=== PATIENT | male | born 1960 | race American Indian/Alaskan Native ===

== ENCOUNTER 2018-07-02 12:33 | Inpatient (IN) | payer OTHER ==
[2018-07-02] MEDS ORDERED: ATIVAN IV ONE (12:44)
--- NOTE | 2018-07-02 12:44 | Emergency Department Report ---
- General Stated complaint: STROKE Time Seen by Provider: 07/02/18 12:33 Source: EMS Mode of arrival: Stretcher Limitations: Altered Mental Status - History of Present Illness Initial comments: Patient is a 58-year-old male presents to emergency with complaints of right- sided weakness as seizure activity. Patient has a known history of seizures. Patient not answering questions. Patient postictal at this time. Report via EMS. Per EMS the family stated that the patient's last known well time was 10:3 0 PM the night before. And is having right sided weakness and inability to move his right arm and leg since 10:30 last night MD Complaint: focal weakness -: Sudden Location: RUE, RLE Severity: severe Consistency: constant Improves with: none Worsens with: none - Related Data Allergies Allergy/AdvReac Type Severity Reaction Status Date / Time No Known Allergies Allergy Verified 07/02/18 13:04 ED Review of Systems ROS: Stated complaint: STROKE Other details as noted in HPI Comment: Unobtainable due to pts medical conditions ED Past Medical Hx - Past Medical History Previous Medical History?: Yes Hx Seizures: Yes - Surgical History Past Surgical History?: No - Family History Family history: no significant - Social History Smoking Status: Unknown if ever smoked Substance Use Type: None ED Physical Exam - General Limitations: Altered Mental Status General appearance: in no apparent distress, lethargic - Head Head exam: Present: atraumatic, normocephalic - Eye Eye exam: Present: normal appearance - ENT ENT exam: Present: mucous membranes moist - Neck Neck exam: Present: normal inspection - Respiratory Respiratory exam: Present: normal lung sounds bilaterally. Absent: respiratory distress - Cardiovascular Cardiovascular Exam: Present: regular rate, normal rhythm. Absent: systolic murmur, diastolic murmur, rubs, gallop - GI/Abdominal GI/Abdominal exam: Present: soft, normal bowel sounds - Rectal Rectal exam: Present: deferred - Extremities Exam Extremities exam: Present: normal inspection - Back Exam Back exam: Present: normal inspection - Neurological Exam Neurological exam: Present: altered - Skin Skin exam: Present: warm, dry, intact, normal color. Absent: rash - Assessment Assessment Interval: Baseline - Level of Consciousness 1a. Level of Consciousness: arousable/minor stimuli - LOC Questions 1b. LOC Questions: aphasic - LOC Command 1c. LOC Commands: performs 1 task correctly - Best Gaze 2. Best Gaze: normal - Visual 3. Visual: no visual loss - Facial Palsy 4. Facial Palsy: minor paralysis - Motor Arm 5b. Motor Arm Right: no movement 5a. Motor Arm Left: no drift - Motor Leg 6b. Motor Leg Right: no movement 6a. Motor Leg Left: no drift - Limb Ataxia 7. Limb Ataxia: absent - Sensory 8. Sensory: normal - Best Language 9. Best Language: severe aphasia - Dysarthria 10. Dysarthria: mute/anarrthric - Extinction and Inattention 11. Extinction/Inattention: no abnormality - Scoring Total Score: 17 Stroke Severity: Moderate to Severe Stroke ED Course Vital Signs 07/02/18 07/02/18 07/02/18 12:56 13:00 13:04 Temperature 100.4 F H Pulse Rate 83 81 84 Respiratory 22 20 18 Rate Blood Pressure 174/95 174/95 O2 Sat by Pulse 98 98 Oximetry 07/02/18 07/02/18 07/02/18 13:16 13:30 13:46 Temperature Pulse Rate 79 77 87 Respiratory 19 17 17 Rate Blood Pressure 168/96 154/96 162/101 O2 Sat by Pulse 100 98 99 Oximetry 07/02/18 07/02/18 14:00 14:16 Temperature Pulse Rate 82 87 Respiratory 20 18 Rate Blood Pressure 154/94 162/100 O2 Sat by Pulse 99 98 Oximetry - Reevaluation(s) Reevaluation #1: Patient immediately evaluated upon arrival by EMS. Code stroke initiated. Patient sent to CT. patient moving during CT and will be given Ativan. 07/02/18 12:30 No change in neuro status. 07/02/18 13:00 Patient is more arousable at this time. Patient is still dysarthric and aphasic. Patient able to move his right side a little bit better but still has notable weakness when Compared to the left side. 07/02/18 14:54 - Consultations Consultation #1: Neurologist consulted. Dr. Santana recommended CT and then immediately CTA 07/02/18 12:42 Discussed CTA results with neurologist. Neurologist recommends admission and MRI. 07/02/18 14:53 Consultation #2: Hospitalist consulted for admission. Hospitalist to admit patient. 07/02/18 14:55 ED Medical Decision Making - Lab Data Result diagrams: 07/02/18 12:55 07/02/18 12:55 - EKG Data -: EKG Interpreted by Ne EKG shows normal: sinus rhythm, axis, intervals, QRS complexes, ST-T waves Rate: normal - EKG Data Interpretation: [facility] - Radiology Data Radiology results: report reviewed FINAL REPORT EXAM: CT HEAD/BRAIN WO CON HISTORY: neuro deficits lt; 6hrs or sx present upon awakening TECHNIQUE: CT of the head was performed. No intravenous contrast was administered. PRIORS: None. FINDINGS: There is moderate cerebral atrophy. There is no evidence of intracranial hemorrhage. There is no edema, mass effect or midline shift. There are no abnormal extra-axial fluid collections. The ventricles are appropriate for brain volume. There is no skull fracture seen. The visualized aspects of the sinuses are clear. IMPRESSION: There is no acute intracranial abnormality identified. Transcribed By: CARLOS Dictated By: HONG PAYTON MD Electronically Authenticated By: HONG PAYTON MD Signed Date/Time: 07/02/18 1303 CTA HEAD CTA NECK INDICATION: Weakness, CVA. COMPARISON: Head CT from earlier today. FINDINGS: CTA head and neck performed utilizing IV contrast. Axial, sagittal, coronal and MIP reconstructions obtained. CTA HEAD: Patent [place] of [place] without evidence of occlusion, significant stenosis or vascular malformation. Patent vertebrobasilar system as well. CTA NECK: Patent aortic arch and major arising branch vessels, including bilateral carotids and codominant vertebral arteries. Mild atherosclerotic changes at the right carotid bulb as on axial series 3, images 231-242 with overall approximately 50% stenosis suspected. Unremarkable thyroid. Clear imaged upper lungs. Patent airway. Multilevel cervical spine degenerative changes, most prominent from C3-C6 with degenerative spurring, endplate irregularities as also mild loss of C5 and C6 vertebral body height. C6-C7 disc narrowing also seen. Leftward nasal septal bowing noted as on axial image 362 as also a 5 mm leftward nasal septal spur, axial image 345. Bilateral maxillary sinus mucosal thickening inferiorly also noted, right more than left. 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 Maxillary dental disease also seen in this patient with small radiopaque dental filling and numerous missing teeth. CONCLUSION: Normal CTA head and neck with few other findings as bilateral maxillary sinusitis, mild right carotid bulb atherosclerosis and multilevel cervical spondylosis, amongst others, as described. Please correlate. If focal neurologic deficits or strong clinical suspicion for an acute infarction exist, additional assessment as with MRI may be considered, as appropriate. Thank you for the opportunity to participate in this patient's care. Transcribed By: RS Dictated By: KELLY REZA MD Electronically Authenticated By: KELLY REZA MD Signed Date/Time: 07/02/18 1439 - Medical Decision Making Patient is a 58-year-old male presents emergency room with complaints of right- sided weakness. Last normal well time was 10:30 AM the day prior. Neurology consulted. CT of the head and neck done, results noted. CT of the head was done. Labs done and noted. Labs essentially unremarkable. Recently admitted to the hospitalist service for further evaluation and treatment. Patient will require MRI and a stroke workup. - Differential Diagnosis cva. tia. weakness. sz. Critical Care Time: Yes Critical care attestation.: If time is entered above; I have spent that time in minutes in the direct care of this critically ill patient, excluding procedure time. Critical Care Time: 45 minutes ED Disposition Clinical Impression: Right sided weakness, Seizure Altered mental state Qualifiers: Altered mental status type: unspecified Qualified Code(s): R41.82 - Altered mental status, unspecified CVA (cerebral vascular accident) Qualifiers: CVA mechanism: unspecified Qualified Code(s): I63.9 - Cerebral infarction, unspecified Disposition: DC-09 OP ADMIT IP TO THIS HOSP Is pt being admited?: Yes Does the pt Need Aspirin: No Condition: Critical Time of Disposition: 14:53
[2018-07-02] MEDS ORDERED: ATIVAN ONE (12:47)
--- NOTE | 2018-07-02 13:03 | Cat Scan Report ---
FINAL REPORT EXAM: CT HEAD/BRAIN WO CON HISTORY: neuro deficits < 6hrs or sx present upon awakening TECHNIQUE: CT of the head was performed. No intravenous contrast was administered. PRIORS: None. FINDINGS: There is moderate cerebral atrophy. There is no evidence of intracranial hemorrhage. There is no edema, mass effect or midline shift. There are no abnormal extra-axial fluid collections. The ventricles are appropriate for brain volume. There is no skull fracture seen. The visualized aspects of the sinuses are clear. IMPRESSION: There is no acute intracranial abnormality identified.
[2018-07-02 13:05] LABS: Basophils % (Auto) 0.5 % (0.0-1.8); Hematocrit 38.6 % (35.5-45.6); Hemoglobin 12.6 gm/dl (11.8-15.2); Lymphocytes % (Auto) 12.3 % (13.4-35.0); Mean Corpuscular HGB Conc 33 % (32-34); Mean Corpuscular Hemoglobin 29 pg (28-32); Mean Corpuscular Volume 88 fl (84-94); Monocytes # (Auto) 0.6 K/mm3 (0.0-0.8); Platelet Count 468 K/mm3 (140-440); Red Blood Count 4.38 M/mm3 (3.65-5.03); Red Cell Distribution Width 15.1 % (13.2-15.2)
[2018-07-02 13:17] LABS: BUN/Creatinine Ratio 16; Blood Urea Nitrogen 11 mg/dL (9-20); Calcium 9.2 mg/dL (8.4-10.2); Hemolysis Index 12
[2018-07-02 13:19] LABS: INR 0.98 (0.87-1.13); Partial Thromboplastin Time 28.2 Sec. (24.2-36.6)
--- NOTE | 2018-07-02 14:36 | Cat Scan Report ---
CTA HEAD CTA NECK INDICATION: Weakness, CVA. COMPARISON: Head CT from earlier today. FINDINGS: CTA head and neck performed utilizing IV contrast. Axial, sagittal, coronal and MIP reconstructions obtained. CTA HEAD: Patent [place] of [place] without evidence of occlusion, significant stenosis or vascular malformation. Patent vertebrobasilar system as well. CTA NECK: Patent aortic arch and major arising branch vessels, including bilateral carotids and codominant vertebral arteries. Mild atherosclerotic changes at the right carotid bulb as on axial series 3, images 231-242 with overall approximately 50% stenosis suspected. Unremarkable thyroid. Clear imaged upper lungs. Patent airway. Multilevel cervical spine degenerative changes, most prominent from C3-C6 with degenerative spurring, endplate irregularities as also mild loss of C5 and C6 vertebral body height. C6-C7 disc narrowing also seen. Leftward nasal septal bowing noted as on axial image 362 as also a 5 mm leftward nasal septal spur, axial image 345. Bilateral maxillary sinus mucosal thickening inferiorly also noted, right more than left. 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 Maxillary dental disease also seen in this patient with small radiopaque dental filling and numerous missing teeth. CONCLUSION: Normal CTA head and neck with few other findings as bilateral maxillary sinusitis, mild right carotid bulb atherosclerosis and multilevel cervical spondylosis, amongst others, as described. Please correlate. If focal neurologic deficits or strong clinical suspicion for an acute infarction exist, additional assessment as with MRI may be considered, as appropriate. Thank you for the opportunity to participate in this patient's care.
[2018-07-02] MEDS ORDERED: DULCOLAX PR PRN (15:07)
[2018-07-02] MEDS ORDERED: SODIUM CHLORIDE FLUSH SYRINGE 10 ML IV PRN (15:07)
[2018-07-02] MEDS ORDERED: MILK OF MAGNESIA PO PRN (15:07)
[2018-07-02] MEDS ORDERED: REGLAN PO PRN (15:07)
[2018-07-02] MEDS ORDERED: PHENERGAN PR PRN (15:07)
[2018-07-02] MEDS ORDERED: TYLENOL PO PRN (15:07)
[2018-07-02] MEDS ORDERED: ZOFRAN IV PRN (15:07)
--- NOTE | 2018-07-02 15:07 | History and Physical Report ---
History of Present Illness Date of admission: confused Chief complaint: confused History of present illness: 58 YO Male with Seizure Disorder, presents to ED for evaluation. Pt is confused, and unable to provide history. Pt history taken from ED staff, and EMS. Patient reports to EMS that the patient became confused around bedtime at 2230 hrs. The patient was also noted to have right sided weakness, slurred speech, and difficulty speaking. Pt subsequently went to bed, and awoke today with persistent symptoms. EMS was notified, and upon arrival the patient was found to have symptoms consistent with CVA. Code Stroke was called and the patient transported to [facility] for further care and evaluation. Pt seen and evaluated in ED. Pt initiated on CVA protocol. Neurology consulted in ED. Pt admitted to telemetry, and initiated on CVA protocol. Pt outside therapeutic window for tpa. No additional history obtainable. Past History Past Medical History: seizures Past Surgical History: No surgical history, Other (reviewed) Social history: , lives with family. denies: smoking, alcohol abuse, prescription drug abuse Family history: no significant family history (reviewed) Medications and Allergies Allergies Allergy/AdvReac Type Severity Reaction Status Date / Time No Known Allergies Allergy Verified 07/02/18 13:04 Home Medications Medication Instructions Recorded Confirmed Last Taken Type Magnesium Oxide [Magnesium] 400 mg PO DAILY 07/02/18 07/02/18 Unknown History Multivitamin [One-Daily 1 each PO DAILY 07/02/18 07/02/18 Unknown History Multi-Vitamin] levETIRAcetam [Keppra TAB] 750 mg PO DAILY 07/02/18 07/02/18 Unknown History Review of Systems ROS unobtainable: due to mental status Exam - Constitutional Vitals: Temp Pulse Resp BP Pulse Ox 100.4 F H 87 18 162/100 98 07/02/18 13:04 07/02/18 14:16 07/02/18 14:16 07/02/18 14:16 07/02/18 14:16 General appearance: Present: mild distress - EENT Eyes: Present: miosis ENT: hearing intact, clear oral mucosa - Neck Neck: Present: supple, normal ROM - Respiratory Respiratory effort: normal Respiratory: bilateral: CTA - Cardiovascular Heart Sounds: Present: S1 & S2. Absent: rub, click - Extremities Extremities: pulses symmetrical, No edema Peripheral Pulses: within normal limits - Abdominal General gastrointestinal: Present: soft, non-tender, non-distended, normal bowel sounds Male genitourinary: Present: normal - Integumentary Integumentary: Present: clear, dry - Musculoskeletal Musculoskeletal: right sided weakness - Psychiatric Psychiatric: no appropriate mood/affect, no intact judgment & insight, no memory intact - Neurologic Neurologic: focal deficits, no moves all extremities, no gait normal Results - Labs CBC & Chem 7: 07/02/18 12:55 07/02/18 12:55 Labs: Abnormal lab results 07/02/18 07/02/18 Range/Units 12:55 12:55 Plt Count 468 H (140-440) K/mm3 Lymph % (Auto) 12.3 L (13.4-35.0) % Lymph # 1.0 L (1.2-5.4) K/mm3 Seg Neutrophils % 80.2 H (40.0-70.0) % Creatinine 0.7 L (0.8-1.5) mg/dL Glucose 124 H (75-100) mg/dL Assessment and Plan - Patient Problems (1) CVA (cerebral vascular accident) Current Visit: Yes Status: Acute Qualifiers: CVA mechanism: occlusion Precerebral and cerebral artery: middle cerebral artery Laterality of affected vessel: left Qualified Code(s): I63.512 - Cerebral infarction due to unspecified occlusion or stenosis of left middle cerebral artery Plan to address problem: Admit to telemetry, CT Head, MRI brain, MRA brain, antiplatelet therapy, statin therapy, lipid panel, PT/OT/Speech therapy, Case management consulted (2) Right hemiparesis Current Visit: Yes Status: Acute Plan to address problem: PT/OT consulted (3) Encephalopathy Current Visit: Yes Status: Acute Plan to address problem: CT Head, neuro checks, supportive care, treat CVA (4) Seizure disorder Current Visit: Yes Status: Acute Plan to address problem: EEG, Neurology consulted in ED, supportive care. (5) DVT prophylaxis Current Visit: Yes Status: Acute Plan to address problem: SCD to ble while in bed
--- NOTE | 2018-07-02 18:21 | Magnetic Resonance Report ---
FINAL REPORT EXAM: MR BRAIN WO CON HISTORY: strokeer inpatient TECHNIQUE: MRI brain without contrast PRIORS: None. FINDINGS: There is normal signal throughout the brain parenchyma. No evidence for brain edema pattern or mass e ffect. Ventricles and sulci are within normal limits. No evidence for acute intra-axial or extra-axia l hemorrhage. No evidence for acute restriction on diffusion-weighted study. Brainstem and posterior fossa structur es are unremarkable. IMPRESSION: Negative. No focal abnormality identified
--- NOTE | 2018-07-02 18:23 | Magnetic Resonance Report ---
FINAL REPORT EXAM: MR MRA/MRV HEAD WO CON HISTORY: strokeer inpatient MR angiogram head [id number] PRIORS: None. FINDINGS: Normal appearance of the intracranial portion of the carotid arteries. The MCA and [place] distributions are unremarkable Distal vertebral arteries are intact. The basilar and REDUCING SYSTEM OPERATOR circulation is within normal limits No evidence for major vascular occlusion or aneurysm IMPRESSION: Normal MRA head
[2018-07-02 21:30] LABS: Bilirubin,Urine NEG (Negative); Blood,Urine NEG (Negative); Color,Urine Yellow (Yellow); Mucus,Urine FEW /HPF; Urobilinogen,Urine < 2.0 mg/dL (<2.0); WBC,Urine < 1.0 /HPF (0.0-6.0)
[2018-07-02 21:40] LABS: Amphetamine Screen,Urine PRESUMPTIVE NEGATIVE; Benzodiazepines Screen,Urine PRESUMPTIVE NEGATIVE; Cannabinoid Screen,Urine PRESUMPTIVE NEGATIVE; Cocaine Screen,Urine PRESUMPTIVE NEGATIVE; Methadone Screen,Urine PRESUMPTIVE NEGATIVE; Opiate Screen,Urine PRESUMPTIVE NEGATIVE
[2018-07-03 05:56] LABS: Chol/HDL Ratio 2.94 %
--- NOTE | 2018-07-03 09:20 | Progress Note ---
Assessment and Plan Assessment and plan: Pt is a 58 yo man with a history of seizure disorder who present to [facility] ED with AMS, confusion and right sided weakness * CT head wo contrast IMPRESSION: There is no acute intracranial abnormality identified. * CTA head and neck CONCLUSION: Normal CTA head and neck with few other findings as bilateral maxillary sinusitis, mild right carotid bulb atherosclerosis and multilevel cervical spondylosis, amongst others, as described. Please correlate. * MRI brain: IMPRESSION: Negative. No focal abnormality identified * MRA brain: IMPRESSION: Normal MRA head -Acute CVA ruled out most likely: ECHO pending -AMS with acute metabolic encephalopathy most likely seizure related defer to Neurology -Seizure Disorder, suspect status epilepticus: treat with Keppra, EEG ordered, -new issue, FEVERS: get blood culture, treat with tylenol, check rapid flu, cxr, UA was unremarkable for uti -DVT prophylaxis: add sq heparin History Interval history: Patient was seen and examined. Follow-up on current diagnosis of AMS. Overnight uneventful. Patient denies any chest pain, shortness breath, nausea/vomiting or severe headaches. Imaging, nursing note, chart, labs and old chart reviewed. Discussed with patient. Hospitalist Physical - Physical exam Narrative exam: Gen: WDWN, NAD, Awake, Alert, Orientated HEENT: NCAT, EOMI, PERRL, OP Clear Neck: supple, no adenopathy, no thyromegaly, no JVD CVS/Heart: RRR, normal S1S2, pulses present bilaterally Chest/Lungs: CTA B, Symmetrical chest expansion, good air entry bilaterally GI/Abdomen: soft, NTND, good bowel sounds, no guarding or rebound /Bladder: no suprapubic tenderness, no CVA or paraspinal tenderness Extermity/Skin: no c/c/e, no obvious rash MSK: FROM x 4 Neuro: CN 2-12 grossly intact, no new focal deficits Psych: calm - Constitutional Vitals: Temp Pulse Resp BP Pulse Ox 98.3 F 65 16 126/82 97 07/03/18 07:53 07/03/18 07:53 07/03/18 07:53 07/03/18 07:53 07/03/18 07:53 General appearance: Absent: mild distress Results - Labs CBC & Chem 7: 07/02/18 12:55 07/02/18 12:55 Labs: Laboratory Last Values WBC 8.1 K/mm3 (4.5-11.0) 07/02/18 12:55 RBC 4.38 M/mm3 (3.65-5.03) 07/02/18 12:55 Hgb 12.6 gm/dl (11.8-15.2) 07/02/18 12:55 Hct 38.6 % (35.5-45.6) 07/02/18 12:55 MCV 88 fl (84-94) 07/02/18 12:55 MCH 29 pg (28-32) 07/02/18 12:55 MCHC 33 % (32-34) 07/02/18 12:55 RDW 15.1 % (13.2-15.2) 07/02/18 12:55 Plt Count 468 K/mm3 (140-440) H 07/02/18 12:55 Lymph % (Auto) 12.3 % (13.4-35.0) L 07/02/18 12:55 [place] % (Auto) 7.0 % (0.0-7.3) 07/02/18 12:55 Eos % (Auto) 0.0 % (0.0-4.3) 07/02/18 12:55 Baso % (Auto) 0.5 % (0.0-1.8) 07/02/18 12:55 Lymph # 1.0 K/mm3 (1.2-5.4) L 07/02/18 12:55 [place] # 0.6 K/mm3 (0.0-0.8) 07/02/18 12:55 Eos # 0.0 K/mm3 (0.0-0.4) 07/02/18 12:55 Baso # 0.0 K/mm3 (0.0-0.1) 07/02/18 12:55 Seg Neutrophils % 80.2 % (40.0-70.0) H 07/02/18 12:55 Seg Neutrophils # 6.5 K/mm3 (1.8-7.7) 07/02/18 12:55 PT 13.4 Sec. (12.2-14.9) 07/02/18 12:59 INR 0.98 (0.87-1.13) 07/02/18 12:59 APTT 28.2 Sec. (24.2-36.6) 07/02/18 12:59 Thrombin Time 17.9 Sec. (15.1-19.6) 07/02/18 12:59 Sodium 138 mmol/L (137-145) 07/02/18 12:55 Potassium 4.4 mmol/L (3.6-5.0) 07/02/18 12:55 Chloride 98.2 mmol/L (98-107) 07/02/18 12:55 Carbon Dioxide 25 mmol/L (22-30) 07/02/18 12:55 Anion Gap 19 mmol/L 07/02/18 12:55 BUN 11 mg/dL (9-20) 07/02/18 12:55 Creatinine 0.7 mg/dL (0.8-1.5) L 07/02/18 12:55 Estimated GFR > 60 ml/min 07/02/18 12:55 BUN/Creatinine Ratio 16 % 07/02/18 12:55 Glucose 124 mg/dL (75-100) H 07/02/18 12:55 Calcium 9.2 mg/dL (8.4-10.2) 07/02/18 12:55 Troponin T < 0.010 ng/mL (0.00-0.029) 07/02/18 12:55 Triglycerides 95 mg/dL (2-149) 07/03/18 04:44 Cholesterol 247 mg/dL (50-199) H 07/03/18 04:44 LDL Cholesterol Direct 160 mg/dL (50-130) H 07/03/18 04:44 HDL Cholesterol 84 mg/dL (40-59) H 07/03/18 04:44 Cholesterol/HDL Ratio 2.94 % 07/03/18 04:44 Urine Color Yellow (Yellow) 07/02/18 21:07 Urine Turbidity Clear (Clear) 07/02/18 21:07 Urine pH 7.0 (5.0-7.0) 07/02/18 21:07 Ur Specific [place] 1.039 (1.003-1.030) H 07/02/18 21:07 Urine Protein 30 mg/dl mg/dL (Negative) 07/02/18 21:07 Urine Glucose (UA) Neg mg/dL (Negative) 07/02/18 21:07 Urine Ketones Neg mg/dL (Negative) 07/02/18 21:07 Urine Blood Neg (Negative) 07/02/18 21:07 Urine Nitrite Neg (Negative) 07/02/18 21:07 Urine Bilirubin Neg (Negative) 07/02/18 21:07 Urine Urobilinogen < 2.0 mg/dL (<2.0) 07/02/18 21:07 Ur Leukocyte Esterase Neg (Negative) 07/02/18 21:07 Urine WBC (Auto) < 1.0 /HPF (0.0-6.0) 07/02/18 21:07 Urine RBC (Auto) 1.0 /HPF (0.0-6.0) 07/02/18 21:07 Urine Mucus Few /HPF 07/02/18 21:07 Urine Opiates Screen Presumptive negative 07/02/18 21:07 Urine Methadone Screen Presumptive negative 07/02/18 21:07 Ur Barbiturates Screen Presumptive negative 07/02/18 21:07 Ur Phencyclidine Scrn Presumptive negative 07/02/18 21:07 Ur Amphetamines Screen Presumptive negative 07/02/18 21:07 U Benzodiazepines Scrn Presumptive negative 07/02/18 21:07 Urine Cocaine Screen Presumptive negative 07/02/18 21:07 U Marijuana (THC) Screen Presumptive negative 07/02/18 21:07 Drugs of Abuse Note Disclamer 07/02/18 21:07
[2018-07-03] MEDS ORDERED: NON-FORMULARY (Levetiracetam [Keppra Tab] 750 MG) PO SCH (10:00)
--- NOTE | 2018-07-03 10:24 | XRay Report ---
AP CHEST: HISTORY: Fever AP view of the chest demonstrates a normal mediastinal and cardiac contour with clear lungs and normal bony and soft tissue structures. IMPRESSION: Unremarkable AP chest.
[2018-07-03] MEDS ORDERED: KEPPRA PO SCH (12:00)
[2018-07-03] MEDS: KEPPRA PO SCH ×2 (13:56→22:56)
[2018-07-03] MEDS: ASPIRIN PO SCH (13:56)
[2018-07-04] MEDS: KEPPRA PO SCH ×2 (09:43→23:59)
[2018-07-04] MEDS: ASPIRIN PO SCH (09:43)
[2018-07-04] MEDS: HEPARIN SUB-Q SCH ×2 (09:44→23:59)
--- NOTE | 2018-07-04 13:55 | Discharge Summary ---
Providers - Providers Date of Admission: 07/02/18 15:07 Date of discharge: 07/04/18 Attending physician: WILLIAM RAHMAN 07/02/18 15:07 Consult to Case Management [CONS] Routine Services Needed at Discharge: Other Notified:: [employer] PRESIDENT Additional Physician Instructions: Home health/Home PT at discharge Occupational Therapy Evaluate and Treat [CONS] Routine Comment: Reason For Exam: Neuro deficits Physical Therapy Evaluation and Treat [CONS] Routine Comment: Reason For Exam: Neuro deficits 07/02/18 15:09 Speech Therapy Evaluation and Treat [CONS] Routine Reason For Exam: swallow eval Primary care physician: BILLING REP Hospitalization Condition: Stable Hospital course: Pt is a 58 yo man with a history of seizure disorder who present to [facility] ED with AMS, confusion and right sided weakness * CT head wo contrast IMPRESSION: There is no acute intracranial abnormality identified. * CTA head and neck CONCLUSION: Normal CTA head and neck with few other findings as bilateral maxillary sinusitis, mild right carotid bulb atherosclerosis and multilevel cervical spondylosis, amongst others, as described. Please corre late. * MRI brain: IMPRESSION: Negative. No focal abnormality identified * MRA brain: Normal * 2D ECHO: Estimated EF 50-55%, trace MR,AR,TR -Acute CVA ruled out most likely, most likely TIA -AMS with acute metabolic encephalopathy most likely seizure related defer to Neurology -Seizure Disorder: treat with Keppra, EEG ordered but not done, outpatient referral -new issue, FEVERS, most likely sinusitis, did qualify for sepsis with 100.4F and rr 22, poa: blood culture neg x 24 hours, treat with tylenol, check rapid flu (labs cancelled testing), cxr negative for pna, UA was unremarkable for uti -DVT prophylaxis: add sq heparin Disposition: DC-01 TO HOME OR SELFCARE Time spent for discharge: 35 minutes Core Measure Documentation - Palliative Care Palliative Care/ Comfort Measures: Not Applicable - Core Measures Any of the following diagnoses?: none - VTE Discharge Requirements Deep Vein Thrombosis/Pulmonary Embolism Present on Admission: No Has pt received <5 days of overlap therapy or INR<2.0: No Anticoagulant overlap therapy prescribed at discharge: No Contraindication No Overlap Therapy order at DC: Not Indicated Exam - Physical Exam Narrative exam: Gen: WDWN, NAD, Awake, Alert, Orientated HEENT: NCAT, EOMI, PERRL, OP Clear Neck: supple, no adenopathy, no thyromegaly, no JVD CVS/Heart: RRR, normal S1S2, pulses present bilaterally Chest/Lungs: CTA B, Symmetrical chest expansion, good air entry bilaterally GI/Abdomen: soft, NTND, good bowel sounds, no guarding or rebound /Bladder: no suprapubic tenderness, no CVA or paraspinal tenderness Extermity/Skin: no c/c/e, no obvious rash MSK: FROM x 4 Neuro: CN 2-12 grossly intact, no new focal deficits Psych: calm - Constitutional Vitals: Temp Pulse Resp BP Pulse Ox 98.3 F 67 20 112/75 98 07/04/18 11:48 07/04/18 11:48 07/04/18 11:48 07/04/18 11:48 07/04/18 11:48 Plan Activity: up only with assistance, fall precautions, other (no strenous activity unless cleared by pcp) Diet: low salt Follow up with: PRIMARY CAREMD [Primary Care Provider] - 7 Days TSERING LÓPEZ MD [Staff Physician] - 7 Days PRICILA VILLAGOMEZ [Staff Physician] - 7 Days Prescriptions: levETIRAcetam [Keppra TAB] 750 mg PO DAILY #30 tablet levoFLOXacin [Levaquin TAB] 500 mg PO QDAY #7 tablet
--- NOTE | 2018-07-04 16:17 | Progress Note ---
Assessment and Plan Assessment and plan: Pt is a 58 yo man with a history of seizure disorder who present to [facility] ED with AMS, confusion and right sided weakness * CT head wo contrast IMPRESSION: There is no acute intracranial abnormality identified. * CTA head and neck CONCLUSION: Normal CTA head and neck with few other findings as bilateral maxillary sinusitis, mild right carotid bulb atherosclerosis and multilevel cervical spondylosis, amongst others, as described. Please correlate. * MRI brain: IMPRESSION: Negative. No focal abnormality identified * MRA brain: IMPRESSION: Normal MRA head -Acute CVA ruled out most likely, possible TIA: ECHO reviewed, -AMS with acute metabolic encephalopathy most likely seizure related defer to Neurology -Seizure Disorder, suspect status epilepticus: treat with Keppra, EEG ordered, -new issue, FEVERS: get blood culture, treat with tylenol, check rapid flu, cxr, UA was unremarkable for uti -DVT prophylaxis: add sq heparin I discharged patient but case management Nati called me and said that patient was unsteady with PT and then PT wanted to work with patient thru the weekend to optimize his performance status History Interval history: Patient was seen and examined. Follow-up on current diagnosis of AMS. Overnight uneventful. Patient denies any chest pain, shortness breath, nausea/vomiting or severe headaches. Imaging, nursing note, chart, labs and old chart reviewed. Discussed with patient. Hospitalist Physical - Physical exam Narrative exam: Gen: WDWN, NAD, Awake, Alert, Orientated HEENT: NCAT, EOMI, PERRL, OP Clear Neck: supple, no adenopathy, no thyromegaly, no JVD CVS/Heart: RRR, normal S1S2, pulses present bilaterally Chest/Lungs: CTA B, Symmetrical chest expansion, good air entry bilaterally GI/Abdomen: soft, NTND, good bowel sounds, no guarding or rebound /Bladder: no suprapubic tenderness, no CVA or paraspinal tenderness Extermity/Skin: no c/c/e, no obvious rash MSK: FROM x 4 Neuro: CN 2-12 grossly intact, no new focal deficits Psych: calm - Constitutional Vitals: Temp Pulse Resp BP Pulse Ox 98.3 F 67 20 112/75 98 07/04/18 11:48 07/04/18 11:48 07/04/18 11:48 07/04/18 11:48 07/04/18 11:48 General appearance: Absent: mild distress Results - Labs CBC & Chem 7: 07/02/18 12:55 07/02/18 12:55 Labs: Laboratory Last Values WBC 8.1 K/mm3 (4.5-11.0) 07/02/18 12:55 RBC 4.38 M/mm3 (3.65-5.03) 07/02/18 12:55 Hgb 12.6 gm/dl (11.8-15.2) 07/02/18 12:55 Hct 38.6 % (35.5-45.6) 07/02/18 12:55 MCV 88 fl (84-94) 07/02/18 12:55 MCH 29 pg (28-32) 07/02/18 12:55 MCHC 33 % (32-34) 07/02/18 12:55 RDW 15.1 % (13.2-15.2) 07/02/18 12:55 Plt Count 468 K/mm3 (140-440) H 07/02/18 12:55 Lymph % (Auto) 12.3 % (13.4-35.0) L 07/02/18 12:55 [place] % (Auto) 7.0 % (0.0-7.3) 07/02/18 12:55 Eos % (Auto) 0.0 % (0.0-4.3) 07/02/18 12:55 Baso % (Auto) 0.5 % (0.0-1.8) 07/02/18 12:55 Lymph # 1.0 K/mm3 (1.2-5.4) L 07/02/18 12:55 [place] # 0.6 K/mm3 (0.0-0.8) 07/02/18 12:55 Eos # 0.0 K/mm3 (0.0-0.4) 07/02/18 12:55 Baso # 0.0 K/mm3 (0.0-0.1) 07/02/18 12:55 Seg Neutrophils % 80.2 % (40.0-70.0) H 07/02/18 12:55 Seg Neutrophils # 6.5 K/mm3 (1.8-7.7) 07/02/18 12:55 PT 13.4 Sec. (12.2-14.9) 07/02/18 12:59 INR 0.98 (0.87-1.13) 07/02/18 12:59 APTT 28.2 Sec. (24.2-36.6) 07/02/18 12:59 Thrombin Time 17.9 Sec. (15.1-19.6) 07/02/18 12:59 Sodium 138 mmol/L (137-145) 07/02/18 12:55 Potassium 4.4 mmol/L (3.6-5.0) 07/02/18 12:55 Chloride 98.2 mmol/L (98-107) 07/02/18 12:55 Carbon Dioxide 25 mmol/L (22-30) 07/02/18 12:55 Anion Gap 19 mmol/L 07/02/18 12:55 BUN 11 mg/dL (9-20) 07/02/18 12:55 Creatinine 0.7 mg/dL (0.8-1.5) L 07/02/18 12:55 Estimated GFR > 60 ml/min 07/02/18 12:55 BUN/Creatinine Ratio 16 % 07/02/18 12:55 Glucose 124 mg/dL (75-100) H 07/02/18 12:55 Calcium 9.2 mg/dL (8.4-10.2) 07/02/18 12:55 Troponin T < 0.010 ng/mL (0.00-0.029) 07/02/18 12:55 Triglycerides 95 mg/dL (2-149) 07/03/18 04:44 Cholesterol 247 mg/dL (50-199) H 07/03/18 04:44 LDL Cholesterol Direct 160 mg/dL (50-130) H 07/03/18 04:44 HDL Cholesterol 84 mg/dL (40-59) H 07/03/18 04:44 Cholesterol/HDL Ratio 2.94 % 07/03/18 04:44 Urine Color Yellow (Yellow) 07/02/18 21:07 Urine Turbidity Clear (Clear) 07/02/18 21:07 Urine pH 7.0 (5.0-7.0) 07/02/18 21:07 Ur Specific [place] 1.039 (1.003-1.030) H 07/02/18 21:07 Urine Protein 30 mg/dl mg/dL (Negative) 07/02/18 21:07 Urine Glucose (UA) Neg mg/dL (Negative) 07/02/18 21:07 Urine Ketones Neg mg/dL (Negative) 07/02/18 21:07 Urine Blood Neg (Negative) 07/02/18 21:07 Urine Nitrite Neg (Negative) 07/02/18 21:07 Urine Bilirubin Neg (Negative) 07/02/18 21:07 Urine Urobilinogen < 2.0 mg/dL (<2.0) 07/02/18 21:07 Ur Leukocyte Esterase Neg (Negative) 07/02/18 21:07 Urine WBC (Auto) < 1.0 /HPF (0.0-6.0) 07/02/18 21:07 Urine RBC (Auto) 1.0 /HPF (0.0-6.0) 07/02/18 21:07 Urine Mucus Few /HPF 07/02/18 21:07 Urine Opiates Screen Presumptive negative 07/02/18 21:07 Urine Methadone Screen Presumptive negative 07/02/18 21:07 Ur Barbiturates Screen Presumptive negative 07/02/18 21:07 Ur Phencyclidine Scrn Presumptive negative 07/02/18 21:07 Ur Amphetamines Screen Presumptive negative 07/02/18 21:07 U Benzodiazepines Scrn Presumptive negative 07/02/18 21:07 Urine Cocaine Screen Presumptive negative 07/02/18 21:07 U Marijuana (THC) Screen Presumptive negative 07/02/18 21:07 Drugs of Abuse Note Disclamer 07/02/18 21:07
[2018-07-05] MEDS: ASPIRIN PO SCH (10:32)
[2018-07-05] MEDS: HEPARIN SUB-Q SCH ×2 (10:32→22:34)
[2018-07-05] MEDS: KEPPRA PO SCH ×2 (10:32→22:33)
--- NOTE | 2018-07-05 11:09 | Progress Note ---
Subjective Date of service: 07/05/18 Interval history: went over all the prior imaging studies and all are normal he had normal neuro exam and prior hx of epilepsy can go home and follow up in office advise sending him home on anticonvulsants... full note is dictated Objective - Vital Sign Vital Signs - 12hr 07/04/18 07/05/18 23:08 05:36 Temperature 98.3 F Pulse Rate 64 Respiratory 20 Rate Blood Pressure 131/81 O2 Sat by Pulse 100 99 Oximetry - Laboratory Findings CBC and BMP: 07/02/18 12:55 07/02/18 12:55 Abnormal Lab Findings: Abnormal Labs 07/02/18 07/02/18 07/02/18 12:55 12:55 21:07 Plt Count 468 H Lymph % (Auto) 12.3 L Lymph # 1.0 L Seg Neutrophils % 80.2 H Creatinine 0.7 L Glucose 124 H Cholesterol LDL Cholesterol Direct HDL Cholesterol Ur Specific [place] 1.039 H 07/03/18 04:44 Plt Count Lymph % (Auto) Lymph # Seg Neutrophils % Creatinine Glucose Cholesterol 247 H LDL Cholesterol Direct 160 H HDL Cholesterol 84 H Ur Specific [place]
--- NOTE | 2018-07-05 13:49 | Consultation ---
HISTORY OF PRESENT ILLNESS: This is a 58-year-old black male, who is admitted to [facility] for evaluation of seizures. He apparently began to have problems with managing his medication recently. He has had multiple seizures according to his family history. He has had seizures for many years, takes a number of medications for this. He does admit that he has not been very compliant with his medication and had missed several doses, also was taking multivitamins and maybe he got confused as to what he was taking. The history that we have available is that when he presented to the Emergency Room on 07/02/2018 he was having right-sided weakness and seizure activity. He was postictal when he was found by EMS. The patient had not brought his medication previously to the hospital, so is not entirely clear as to what medicine he was taking. A CT scan of the head was done. Electrolytes were checked. He had very high blood sugar of 124. Otherwise, the electrolytes are unremarkable. The patient was very dysarthric on presentation postictal. At this point, his dysarthria is clear. He feels better. He does not feel confused. He denies have any seizure problems. On my examination, he is fully alert, appropriate. Speech is clear. Affect appropriate. Neck supple, no tremors or asterixis. Motor and sensory examination is unremarkable. Babinski sounds not present. The patient is fully oriented, appropriate, alert, has excellent recall for events prior to the admission. IMPRESSION: Generalized seizure disorder. 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 I find no evidence that he has residual stroke at this point, may be discharged home. I am not sure that he exactly remembers the type medicine he takes. States he takes 5 seizure pills a day, which would actually tend to make me think he was taking Dilantin, although it would be better to be sure about this and get a pharmacist to check him over his pharmacy profile. He may be discharged this time. JOB# [id number] OTONIEL/NTS
--- NOTE | 2018-07-05 14:51 | Progress Note ---
Assessment and Plan Assessment and plan: Pt is a 58 yo man with a history of seizure disorder who present to [facility] ED with AMS, confusion and right sided weakness * CT head wo contrast IMPRESSION: There is no acute intracranial abnormality identified. * CTA head and neck CONCLUSION: Normal CTA head and neck with few other findings as bilateral maxillary sinusitis, mild right carotid bulb atherosclerosis and multilevel cervical spondylosis, amongst others, as described. Please correlate. * MRI brain: IMPRESSION: Negative. No focal abnormality identified * MRA brain: IMPRESSION: Normal MRA head -Acute CVA ruled out most likely, possible TIA: ECHO reviewed, -AMS with acute metabolic encephalopathy most likely seizure related defer to Neurology -Seizure Disorder, suspect status epilepticus: treat with Keppra, EEG ordered, -new issue, FEVERS: get blood culture, treat with tylenol, , cxr, UA was unremarkable for uti -DVT prophylaxis: add sq heparin I discharged patient but case management Nati called me and said that patient was unsteady with PT and then PT wanted to work with patient thru the weekend to optimize his performance status History Interval history: Review of systems Constitutional: No fevers, no malaise, no joint pains CVS: No chest pain, no orthopnea, no dyspnea on exertion, no pedal edema GI: No abdominal pain, no diarrhea, no vomiting, no constipation Respiratory: No shortness of breath, no wheezing, no coughing Hospitalist Physical - Physical exam Narrative exam: General.: Appears well, no distress, nontoxic HEENT: Moist mucous membranes, extraocular muscles intact, no lymphadenopathy Neck: supple Cardiac: S1-S2 heard Lungs: clear to auscultation bilaterally Abdomen: soft , nontender, nondistended, bowel sounds positive Extremities: no edema clubbing or cyanosis Skin: no rash or lesions Neurologic: no gross focal deficits Psych: appropriate behavior, appropriate mood, corporative, judgment intact - Constitutional Vitals: Temp Pulse Resp BP Pulse Ox 98.3 F 64 20 131/81 99 07/05/18 05:36 07/05/18 05:36 07/05/18 05:36 07/05/18 05:36 07/05/18 05:36 General appearance: Absent: mild distress Results - Labs CBC & Chem 7: 07/02/18 12:55 07/02/18 12:55 Labs: Laboratory Last Values WBC 8.1 K/mm3 (4.5-11.0) 07/02/18 12:55 RBC 4.38 M/mm3 (3.65-5.03) 07/02/18 12:55 Hgb 12.6 gm/dl (11.8-15.2) 07/02/18 12:55 Hct 38.6 % (35.5-45.6) 07/02/18 12:55 MCV 88 fl (84-94) 07/02/18 12:55 MCH 29 pg (28-32) 07/02/18 12:55 MCHC 33 % (32-34) 07/02/18 12:55 RDW 15.1 % (13.2-15.2) 07/02/18 12:55 Plt Count 468 K/mm3 (140-440) H 07/02/18 12:55 Lymph % (Auto) 12.3 % (13.4-35.0) L 07/02/18 12:55 [place] % (Auto) 7.0 % (0.0-7.3) 07/02/18 12:55 Eos % (Auto) 0.0 % (0.0-4.3) 07/02/18 12:55 Baso % (Auto) 0.5 % (0.0-1.8) 07/02/18 12:55 Lymph # 1.0 K/mm3 (1.2-5.4) L 07/02/18 12:55 [place] # 0.6 K/mm3 (0.0-0.8) 07/02/18 12:55 Eos # 0.0 K/mm3 (0.0-0.4) 07/02/18 12:55 Baso # 0.0 K/mm3 (0.0-0.1) 07/02/18 12:55 Seg Neutrophils % 80.2 % (40.0-70.0) H 07/02/18 12:55 Seg Neutrophils # 6.5 K/mm3 (1.8-7.7) 07/02/18 12:55 PT 13.4 Sec. (12.2-14.9) 07/02/18 12:59 INR 0.98 (0.87-1.13) 07/02/18 12:59 APTT 28.2 Sec. (24.2-36.6) 07/02/18 12:59 Thrombin Time 17.9 Sec. (15.1-19.6) 07/02/18 12:59 Sodium 138 mmol/L (137-145) 07/02/18 12:55 Potassium 4.4 mmol/L (3.6-5.0) 07/02/18 12:55 Chloride 98.2 mmol/L (98-107) 07/02/18 12:55 Carbon Dioxide 25 mmol/L (22-30) 07/02/18 12:55 Anion Gap 19 mmol/L 07/02/18 12:55 BUN 11 mg/dL (9-20) 07/02/18 12:55 Creatinine 0.7 mg/dL (0.8-1.5) L 07/02/18 12:55 Estimated GFR > 60 ml/min 07/02/18 12:55 BUN/Creatinine Ratio 16 % 07/02/18 12:55 Glucose 124 mg/dL (75-100) H 07/02/18 12:55 Calcium 9.2 mg/dL (8.4-10.2) 07/02/18 12:55 Troponin T < 0.010 ng/mL (0.00-0.029) 07/02/18 12:55 Triglycerides 95 mg/dL (2-149) 07/03/18 04:44 Cholesterol 247 mg/dL (50-199) H 07/03/18 04:44 LDL Cholesterol Direct 160 mg/dL (50-130) H 07/03/18 04:44 HDL Cholesterol 84 mg/dL (40-59) H 07/03/18 04:44 Cholesterol/HDL Ratio 2.94 % 07/03/18 04:44 Urine Color Yellow (Yellow) 07/02/18 21:07 Urine Turbidity Clear (Clear) 07/02/18 21:07 Urine pH 7.0 (5.0-7.0) 07/02/18 21:07 Ur Specific [place] 1.039 (1.003-1.030) H 07/02/18 21:07 Urine Protein 30 mg/dl mg/dL (Negative) 07/02/18 21:07 Urine Glucose (UA) Neg mg/dL (Negative) 07/02/18 21:07 Urine Ketones Neg mg/dL (Negative) 07/02/18 21:07 Urine Blood Neg (Negative) 07/02/18 21:07 Urine Nitrite Neg (Negative) 07/02/18 21:07 Urine Bilirubin Neg (Negative) 07/02/18 21:07 Urine Urobilinogen < 2.0 mg/dL (<2.0) 07/02/18 21:07 Ur Leukocyte Esterase Neg (Negative) 07/02/18 21:07 Urine WBC (Auto) < 1.0 /HPF (0.0-6.0) 07/02/18 21:07 Urine RBC (Auto) 1.0 /HPF (0.0-6.0) 07/02/18 21:07 Urine Mucus Few /HPF 07/02/18 21:07 Urine Opiates Screen Presumptive negative 07/02/18 21:07 Urine Methadone Screen Presumptive negative 07/02/18 21:07 Ur Barbiturates Screen Presumptive negative 07/02/18 21:07 Ur Phencyclidine Scrn Presumptive negative 07/02/18 21:07 Ur Amphetamines Screen Presumptive negative 07/02/18 21:07 U Benzodiazepines Scrn Presumptive negative 07/02/18 21:07 Urine Cocaine Screen Presumptive negative 07/02/18 21:07 U Marijuana (THC) Screen Presumptive negative 07/02/18 21:07 Drugs of Abuse Note Disclamer 07/02/18 21:07
[2018-07-06] MEDS: KEPPRA PO SCH ×2 (10:30→21:53)
[2018-07-06] MEDS: ASPIRIN PO SCH (10:32)
[2018-07-06] MEDS: HEPARIN SUB-Q SCH ×2 (10:33→21:54)
--- NOTE | 2018-07-06 14:05 | Progress Note ---
Assessment and Plan Assessment and plan: Pt is a 58 yo man with a history of seizure disorder who present to [facility] ED with AMS, confusion and right sided weakness * CT head wo contrast IMPRESSION: There is no acute intracranial abnormality identified. * CTA head and neck CONCLUSION: Normal CTA head and neck with few other findings as bilateral maxillary sinusitis, mild right carotid bulb atherosclerosis and multilevel cervical spondylosis, amongst others, as described. Please correlate. * MRI brain: IMPRESSION: Negative. No focal abnormality identified * MRA brain: IMPRESSION: Normal MRA head -Acute CVA ruled out most likely, possible TIA: ECHO reviewed, -AMS with acute metabolic encephalopathy most likely seizure related defer to Neurology -Seizure Disorder, suspect status epilepticus: treat with Keppra, EEG ordered, -new issue, FEVERS: get blood culture, treat with tylenol, , cxr, UA was unremarkable for uti -DVT prophylaxis: add sq heparin I discharged patient but case management Nati called me and said that patient was unsteady with PT and then PT wanted to work with patient thru the weekend to optimize his performance status History Interval history: Review of systems Constitutional: No fevers, no malaise, no joint pains CVS: No chest pain, no orthopnea, no dyspnea on exertion, no pedal edema GI: No abdominal pain, no diarrhea, no vomiting, no constipation Respiratory: No shortness of breath, no wheezing, no coughing Hospitalist Physical - Physical exam Narrative exam: General.: Appears well, no distress, nontoxic HEENT: Moist mucous membranes, extraocular muscles intact, no lymphadenopathy Neck: supple Cardiac: S1-S2 heard Lungs: clear to auscultation bilaterally Abdomen: soft , nontender, nondistended, bowel sounds positive Extremities: no edema clubbing or cyanosis Skin: no rash or lesions Neurologic: no gross focal deficits Psych: appropriate behavior, appropriate mood, corporative, judgment intact - Constitutional Vitals: Temp Pulse Resp BP Pulse Ox 98.5 F 61 18 111/71 98 07/06/18 05:30 07/06/18 05:30 07/06/18 05:30 07/06/18 05:30 07/06/18 05:30 General appearance: Absent: mild distress Results - Labs CBC & Chem 7: 07/02/18 12:55 07/02/18 12:55 Labs: Laboratory Last Values WBC 8.1 K/mm3 (4.5-11.0) 07/02/18 12:55 RBC 4.38 M/mm3 (3.65-5.03) 07/02/18 12:55 Hgb 12.6 gm/dl (11.8-15.2) 07/02/18 12:55 Hct 38.6 % (35.5-45.6) 07/02/18 12:55 MCV 88 fl (84-94) 07/02/18 12:55 MCH 29 pg (28-32) 07/02/18 12:55 MCHC 33 % (32-34) 07/02/18 12:55 RDW 15.1 % (13.2-15.2) 07/02/18 12:55 Plt Count 468 K/mm3 (140-440) H 07/02/18 12:55 Lymph % (Auto) 12.3 % (13.4-35.0) L 07/02/18 12:55 [place] % (Auto) 7.0 % (0.0-7.3) 07/02/18 12:55 Eos % (Auto) 0.0 % (0.0-4.3) 07/02/18 12:55 Baso % (Auto) 0.5 % (0.0-1.8) 07/02/18 12:55 Lymph # 1.0 K/mm3 (1.2-5.4) L 07/02/18 12:55 [place] # 0.6 K/mm3 (0.0-0.8) 07/02/18 12:55 Eos # 0.0 K/mm3 (0.0-0.4) 07/02/18 12:55 Baso # 0.0 K/mm3 (0.0-0.1) 07/02/18 12:55 Seg Neutrophils % 80.2 % (40.0-70.0) H 07/02/18 12:55 Seg Neutrophils # 6.5 K/mm3 (1.8-7.7) 07/02/18 12:55 PT 13.4 Sec. (12.2-14.9) 07/02/18 12:59 INR 0.98 (0.87-1.13) 07/02/18 12:59 APTT 28.2 Sec. (24.2-36.6) 07/02/18 12:59 Thrombin Time 17.9 Sec. (15.1-19.6) 07/02/18 12:59 Sodium 138 mmol/L (137-145) 07/02/18 12:55 Potassium 4.4 mmol/L (3.6-5.0) 07/02/18 12:55 Chloride 98.2 mmol/L (98-107) 07/02/18 12:55 Carbon Dioxide 25 mmol/L (22-30) 07/02/18 12:55 Anion Gap 19 mmol/L 07/02/18 12:55 BUN 11 mg/dL (9-20) 07/02/18 12:55 Creatinine 0.7 mg/dL (0.8-1.5) L 07/02/18 12:55 Estimated GFR > 60 ml/min 07/02/18 12:55 BUN/Creatinine Ratio 16 % 07/02/18 12:55 Glucose 124 mg/dL (75-100) H 07/02/18 12:55 Calcium 9.2 mg/dL (8.4-10.2) 07/02/18 12:55 Troponin T < 0.010 ng/mL (0.00-0.029) 07/02/18 12:55 Triglycerides 95 mg/dL (2-149) 07/03/18 04:44 Cholesterol 247 mg/dL (50-199) H 07/03/18 04:44 LDL Cholesterol Direct 160 mg/dL (50-130) H 07/03/18 04:44 HDL Cholesterol 84 mg/dL (40-59) H 07/03/18 04:44 Cholesterol/HDL Ratio 2.94 % 07/03/18 04:44 Urine Color Yellow (Yellow) 07/02/18 21:07 Urine Turbidity Clear (Clear) 07/02/18 21:07 Urine pH 7.0 (5.0-7.0) 07/02/18 21:07 Ur Specific [place] 1.039 (1.003-1.030) H 07/02/18 21:07 Urine Protein 30 mg/dl mg/dL (Negative) 07/02/18 21:07 Urine Glucose (UA) Neg mg/dL (Negative) 07/02/18 21:07 Urine Ketones Neg mg/dL (Negative) 07/02/18 21:07 Urine Blood Neg (Negative) 07/02/18 21:07 Urine Nitrite Neg (Negative) 07/02/18 21:07 Urine Bilirubin Neg (Negative) 07/02/18 21:07 Urine Urobilinogen < 2.0 mg/dL (<2.0) 07/02/18 21:07 Ur Leukocyte Esterase Neg (Negative) 07/02/18 21:07 Urine WBC (Auto) < 1.0 /HPF (0.0-6.0) 07/02/18 21:07 Urine RBC (Auto) 1.0 /HPF (0.0-6.0) 07/02/18 21:07 Urine Mucus Few /HPF 07/02/18 21:07 Urine Opiates Screen Presumptive negative 07/02/18 21:07 Urine Methadone Screen Presumptive negative 07/02/18 21:07 Ur Barbiturates Screen Presumptive negative 07/02/18 21:07 Ur Phencyclidine Scrn Presumptive negative 07/02/18 21:07 Ur Amphetamines Screen Presumptive negative 07/02/18 21:07 U Benzodiazepines Scrn Presumptive negative 07/02/18 21:07 Urine Cocaine Screen Presumptive negative 07/02/18 21:07 U Marijuana (THC) Screen Presumptive negative 07/02/18 21:07 Drugs of Abuse Note Disclamer 07/02/18 21:07
--- NOTE | 2018-07-06 20:27 | Progress Note ---
Subjective Date of service: 07/06/18 Interval history: MAY ELECT TO DO EEG IF PATIENT NOT DISCHARGED TO ASSESS SEIZURE QUESTION WOULD HELP IF FAMILY COULD CONFORM ACCURATE DOSE OF ANTICONVULSANTS PERHAPS INDUSTRIAL STAFF NURSE WILL HELP EXRACT THIS INFO Objective - Vital Sign Vital Signs - 12hr 07/06/18 07/06/18 07/06/18 10:00 11:40 16:52 Temperature 98.3 F 98.0 F Pulse Rate 62 51 L Respiratory 20 20 Rate Blood Pressure 106/78 113/68 O2 Sat by Pulse 100 100 97 Oximetry - Laboratory Findings CBC and BMP: 07/02/18 12:55 07/02/18 12:55 Abnormal Lab Findings: Abnormal Labs 07/02/18 07/02/18 07/02/18 12:55 12:55 21:07 Plt Count 468 H Lymph % (Auto) 12.3 L Lymph # 1.0 L Seg Neutrophils % 80.2 H Creatinine 0.7 L Glucose 124 H Cholesterol LDL Cholesterol Direct HDL Cholesterol Ur Specific [place] 1.039 H 07/03/18 04:44 Plt Count Lymph % (Auto) Lymph # Seg Neutrophils % Creatinine Glucose Cholesterol 247 H LDL Cholesterol Direct 160 H HDL Cholesterol 84 H Ur Specific [place]
[2018-07-07] MEDS: ASPIRIN PO SCH (11:02)
[2018-07-07] MEDS: KEPPRA PO SCH (11:02)
[2018-07-07] MEDS: HEPARIN SUB-Q SCH (11:03)
[2018-07-07 11:56] VITALS: BP 123/74
--- NOTE | 2018-07-07 15:11 | Discharge Summary ---
Providers - Providers Date of Admission: 07/02/18 15:07 Attending physician: ROSA SALMON MD 07/02/18 15:07 Consult to Case Management [CONS] Routine Services Needed at Discharge: Other Notified:: [employer] Additional Physician Instructions: Home health/Home PT at discharge Occupational Therapy Evaluate and Treat [CONS] Routine Comment: Reason For Exam: Neuro deficits Physical Therapy Evaluation and Treat [CONS] Routine Comment: Reason For Exam: Neuro deficits 07/02/18 15:09 Speech Therapy Evaluation and Treat [CONS] Routine Reason For Exam: swallow eval 07/04/18 16:18 Consult to Physician [CONS] Routine Comment: Consulting Provider: TSERING LÓPEZ Physician Instructions: Reason For Exam: seizures Primary care physician: BARREL COATER Hospitalization Condition: Stable Pertinent studies: * CT head wo contrast IMPRESSION: There is no acute intracranial abnormality identified. * CTA head and neck CONCLUSION: Normal CTA head and neck with few other findings as bilateral maxillary sinusitis, mild right carotid bulb atherosclerosis and multilevel cervical spondylosis, amongst others, as described. Please correlate. * MRI brain: IMPRESSION: Negative. No focal abnormality identified * MRA brain: IMPRESSION: Normal MRA head Hospital course: Pt is a 58 yo man with a history of seizure disorder who present to [facility] ED with AMS, confusion and right sided weakness Imaging studies were negative for stroke. Therefore his symptoms are likely due to a TIA. The patient also had some ataxia, there was no seizure activity during his hospital stay. He received physical therapy. He is being discharged with home physical therapy. Unfortunately the patient does not have any health insurance, therefore we have organized some [facility] physical therapy visits for him. Due to not having coverage she is not able to go to subacute rehabilitation. -he also had low-grade fever, which resolved without any specific intervention. Chest x-ray and UA were negative, blood cultures were also negative -His medications optimized, it is recommended that he follow up with neurology as an outpatient, he needs to see his PCP for referral -there was no seizure activity during his hospital stay, however there was suspected seizure activity prior to coming to the hospital, and altered mental status which was suspected to be post ictal state., he was continued on keppra during hospital stay -The patient had marked elevated LDL, therefore he was put on aspirin and statin for secondary TIA/ stroke prevention Diagnoses TIA Acute metabolic encephalopathy Seizure disorder Fever HLD Disposition: DC/TX-06 HOME UNDER HOME HL Time spent for discharge: 33 minutes Core Measure Documentation - Palliative Care Palliative Care/ Comfort Measures: Not Applicable - Core Measures Any of the following diagnoses?: stroke - Stroke Discharge Requirements Statin for LDL = or >70 mg/dl on DC: Yes Anticoag for atrial fib/atrial flutter: Not Applicable Antithrombotic for ischemic stroke: Yes Exam - Physical Exam Narrative exam: General.: Appears well, no distress, nontoxic HEENT: Moist mucous membranes, extraocular muscles intact, no lymphadenopathy Neck: supple Cardiac: S1-S2 heard Lungs: clear to auscultation bilaterally Abdomen: soft , nontender, nondistended, bowel sounds positive Extremities: no edema clubbing or cyanosis Skin: no rash or lesions Neurologic: no gross focal deficits Psych: appropriate behavior, appropriate mood, corporative, judgment intact - Constitutional Vitals: Temp Pulse Resp BP Pulse Ox 98.4 F 57 L 16 123/74 100 07/07/18 11:29 07/07/18 11:29 07/07/18 11:29 07/07/18 11:29 07/07/18 11:29 Plan Follow up with: PRICILA VILLAGOMEZ [Staff Physician] - 7 Days PRIMARY CARE, [Primary Care Provider] - 7 Days TSERING LÓPEZ MD [Staff Physician] - 7 Days Prescriptions: Pravastatin [Pravachol (Nf)] 40 mg PO QHS #30 tablet Aspirin EC [Aspirin Enteric Coated TAB] 81 mg PO QDAY #30 tablet. levETIRAcetam [Keppra TAB] 750 mg PO DAILY #30 tablet
== END 2018-07-07 18:00 | disposition home health service (06) | DRG 69 ==
LOC: ED 12:33 → 4A 15:07 → 3A 07-03 18:10
PROVIDERS: ADMIT Internal Medicine; ATTEND Internal Medicine
DX: G45.9 Transient cerebral ischemic attack, unspecified (principal); G93.41 Metabolic encephalopathy; G81.91 Hemiplegia, unspecified affecting right dominant side; G40.909 Epilepsy, unspecified, not intractable, without status epilepticus; E78.5 Hyperlipidemia, unspecified
CPT/HCPCS: 36415; 70450; 70496; 70498; 70544; 70551; 71045; 80048; 80061; 80307; 81001; 84484; 85025; 85610; 85670; 85730; 87040; 93005; 93010; 93306; 96374; G0378; A9270-GY; J1644; J2060; Q9967

== ENCOUNTER 2018-09-09 06:32 | Emergency (ER) | payer OTHER ==
[2018-09-09 07:12] LABS: Hematocrit 35.7 % (35.5-45.6); Hemoglobin 11.7 gm/dl (11.8-15.2); Mean Corpuscular HGB Conc 33 % (32-34); Mean Corpuscular Volume 83 fl (84-94); Platelet Count 303 K/mm3 (140-440); Red Blood Count 4.29 M/mm3 (3.65-5.03); Red Cell Distribution Width 17.3 % (13.2-15.2)
[2018-09-09] MEDS ORDERED: KEPPRA 1,000 MG/NS 0.75% 100ML 1,000 MG/100 ML BAG IV ONE (07:26)
--- NOTE | 2018-09-09 07:27 | Emergency Department Report ---
ED Seizure HPI - General Chief Complaint: Seizure Stated Complaint: POSS SEIZURE Time Seen by Provider: 09/09/18 07:26 Source: patient, EMS Mode of arrival: Stretcher Limitations: No Limitations - History of Present Illness Initial Comments: 58-year-old male who is a rather poor historian. He has history of seizures. He does admit to having seizures when he stops drinking. He states that he usually drinks beer and that he has recently drank 324 ounce bottles. He is oriented at time of my exam. He does not admit any falls or head trauma. He did not injure himself during this seizure. He has been previously prescribed Keppra. He has been previously prescribed antihypertensive medication. As far as I can tell he is noncompliant with medication. MD Complaint: seizure Description of Episode: tonic-clonic movement Seizure History: none Place: home Possible Precipitating Event: none Associated Symptoms: denies other symptoms Treatments Prior to Arrival: none - Related Data Home Medications Medication Instructions Recorded Confirmed Last Taken Multivitamin [One-Daily 1 each PO DAILY 07/02/18 07/02/18 Unknown Multi-Vitamin] Previous Rx's Medication Instructions Recorded Last Taken Type Magnesium Oxide [Magnesium] 400 mg PO DAILY #15 07/04/18 Unknown Rx levETIRAcetam [Keppra TAB] 750 mg PO DAILY #30 tablet 07/04/18 Unknown Rx Aspirin EC [Aspirin Enteric Coated 81 mg PO QDAY #30 tablet.dr 07/07/18 Unknown Rx TAB] Pravastatin [Pravachol (Nf)] 40 mg PO QHS #30 tablet 07/07/18 Unknown Rx amLODIPine [Norvasc] 5 mg PO DAILY #30 tab 09/09/18 Unknown Rx levETIRAcetam [Keppra] 500 mg PO BID #60 tablet 09/09/18 Unknown Rx Allergies Allergy/AdvReac Type Severity Reaction Status Date / Time No Known Allergies Allergy Verified 07/02/18 13:04 ED Review of Systems ROS: Stated complaint: POSS SEIZURE Other details as noted in HPI Constitutional: denies: chills, fever Eyes: denies: eye pain, eye discharge, vision change ENT: denies: ear pain, throat pain Respiratory: denies: cough, shortness of breath, wheezing Cardiovascular: denies: chest pain, palpitations Endocrine: no symptoms reported Gastrointestinal: denies: abdominal pain, nausea, diarrhea Genitourinary: denies: urgency, dysuria Musculoskeletal: denies: back pain, joint swelling, arthralgia Skin: denies: rash, lesions Neurological: denies: headache, weakness, paresthesias Psychiatric: denies: anxiety, depression Hematological/Lymphatic: denies: easy bleeding, easy bruising ED Past Medical Hx - Past Medical History Previous Medical History?: Yes Hx Hypertension: Yes Hx Seizures: Yes Hx HIV: No - Surgical History Past Surgical History?: No - Social History Smoking Status: Never Smoker Substance Use Type: Alcohol, Prescribed - Medications Home Medications: Home Medications Medication Instructions Recorded Confirmed Last Taken Type Multivitamin [One-Daily 1 each PO DAILY 07/02/18 07/02/18 Unknown History Multi-Vitamin] Magnesium Oxide [Magnesium] 400 mg PO DAILY #15 07/04/18 07/02/18 Unknown Rx levETIRAcetam [Keppra TAB] 750 mg PO DAILY #30 tablet 07/04/18 Unknown Rx Aspirin EC [Aspirin Enteric Coated 81 mg PO QDAY #30 tablet.dr 07/07/18 Unknown Rx TAB] Pravastatin [Pravachol (Nf)] 40 mg PO QHS #30 tablet 07/07/18 Unknown Rx amLODIPine [Norvasc] 5 mg PO DAILY #30 tab 09/09/18 Unknown Rx levETIRAcetam [Keppra] 500 mg PO BID #60 tablet 09/09/18 Unknown Rx ED Physical Exam - General Limitations: No Limitations General appearance: alert, in no apparent distress - Head Head exam: Present: atraumatic, normocephalic - Eye Eye exam: Present: normal appearance, scleral icterus. Absent: PERRL, EOMI - ENT ENT exam: Present: mucous membranes moist - Neck Neck exam: Present: normal inspection. Absent: tenderness, meningismus - Respiratory Respiratory exam: Present: normal lung sounds bilaterally. Absent: respiratory distress - Cardiovascular Cardiovascular Exam: Present: regular rate, normal rhythm. Absent: systolic murmur, diastolic murmur, rubs, gallop - GI/Abdominal GI/Abdominal exam: Present: soft, normal bowel sounds. Absent: distended, tenderness, guarding, rebound, rigid - Rectal Rectal exam: Present: deferred - Extremities Exam Extremities exam: Present: normal inspection - Back Exam Back exam: Present: normal inspection - Neurological Exam Neurological exam: Present: alert, oriented X3, CN II-XII intact. Absent: motor sensory deficit - Psychiatric Psychiatric exam: Present: normal affect, normal mood - Skin Skin exam: Present: warm, dry, intact, normal color. Absent: rash ED Course Vital Signs 09/09/18 09/09/18 09/09/18 06:43 06:46 06:47 Temperature 98.0 F Pulse Rate 97 H 93 H 82 Respiratory 17 21 Rate Blood Pressure 93/66 149/89 Blood Pressure [Left] O2 Sat by Pulse 97 95 16 L Oximetry 09/09/18 09/09/18 09/09/18 07:00 07:15 07:30 Temperature Pulse Rate 92 H 89 96 H Respiratory 13 18 28 H Rate Blood Pressure 156/95 149/91 163/104 Blood Pressure [Left] O2 Sat by Pulse 95 96 94 Oximetry 09/09/18 09/09/18 09/09/18 07:45 08:00 08:39 Temperature Pulse Rate 89 85 84 Respiratory 18 20 13 Rate Blood Pressure 169/99 161/92 Blood Pressure [Left] O2 Sat by Pulse 95 96 97 Oximetry 09/09/18 09/09/18 09/09/18 08:46 09:00 09:16 Temperature Pulse Rate 85 83 79 Respiratory 18 20 18 Rate Blood Pressure Blood Pressure [Left] O2 Sat by Pulse 96 96 96 Oximetry 09/09/18 09/09/18 09/09/18 09:30 09:46 10:00 Temperature Pulse Rate 82 85 82 Respiratory 19 20 16 Rate Blood Pressure Blood Pressure [Left] O2 Sat by Pulse 93 94 97 Oximetry 09/09/18 09/09/18 09/09/18 10:10 10:16 10:30 Temperature 98.5 F Pulse Rate 88 85 82 Respiratory 16 19 18 Rate Blood Pressure 157/94 162/96 Blood Pressure 157/94 [Left] O2 Sat by Pulse 96 97 95 Oximetry 09/09/18 09/09/18 09/09/18 10:46 11:00 11:16 Temperature Pulse Rate 94 H 90 81 Respiratory 16 20 17 Rate Blood Pressure 162/96 161/91 161/91 Blood Pressure [Left] O2 Sat by Pulse 82 L 96 96 Oximetry 09/09/18 09/09/18 09/09/18 11:30 11:46 12:00 Temperature Pulse Rate 87 77 91 H Respiratory 21 17 19 Rate Blood Pressure 159/99 159/99 147/105 Blood Pressure [Left] O2 Sat by Pulse 95 96 96 Oximetry 09/09/18 09/09/18 12:16 12:30 Temperature Pulse Rate 97 H 74 Respiratory 18 16 Rate Blood Pressure 147/105 135/96 Blood Pressure [Left] O2 Sat by Pulse 95 95 Oximetry ED Medical Decision Making - Lab Data Result diagrams: 09/09/18 06:55 09/09/18 06:55 Laboratory Results - last 24 hr 09/09/18 06:55 WBC 5.6 RBC 4.29 Hgb 11.7 L Hct 35.7 MCV 83 L MCH 27 L MCHC 33 RDW 17.3 H Plt Count 303 - Radiology Data Radiology results: report reviewed IMPRESSION: Evidence of atrophy and microangiopathic ischemic disease. No acute intracranial process noted. No significant change since 07/02/18. Critical care attestation.: If time is entered above; I have spent that time in minutes in the direct care of this critically ill patient, excluding procedure time. ED Disposition Clinical Impression: Seizure, Seizure disorder, Essential hypertension Alcohol withdrawal Qualifiers: Complication of substance-induced condition: uncomplicated Qualified Code(s): F10.230 - Alcohol dependence with withdrawal, uncomplicated Disposition: DC-01 TO HOME OR SELFCARE Is pt being admited?: No Does the pt Need Aspirin: No Condition: Stable Instructions: Recurrent Seizures Adult (ED), Alcohol Withdrawal (ED), Hypertension (ED) Additional Instructions: Follow-up with primary care medical clinic. Avoid excessive alcohol. Rx as directed. Return as needed. Prescriptions: amLODIPine [Norvasc] 5 mg PO DAILY #30 tab levETIRAcetam [Keppra] 500 mg PO BID #60 tablet Referrals: PHOEBE AYALA MD [Primary Care Provider] - 2-3 Days Time of Disposition: 13:48
[2018-09-09 07:37] LABS: BUN/Creatinine Ratio 17; Blood Urea Nitrogen 12 mg/dL (9-20); Calcium 9.2 mg/dL (8.4-10.2); Hemolysis Index 10
[2018-09-09] MEDS ORDERED: VITAMIN B-1 PO ONE (07:38)
[2018-09-09] MEDS ORDERED: FOLVITE 1 MG, INFUVITE 10 ML in NACL 0.9% 1000 ML 1,000 ML IV ONE (07:38)
[2018-09-09] MEDS ORDERED: ATIVAN IV ONE (07:38)
[2018-09-09 08:07] LABS: Alanine Aminotransferase 17 units/L (7-56); Albumin 4.1 g/dL (3.9-5)
[2018-09-09 08:08] LABS: Bilirubin,Direct < 0.2 mg/dL (0-0.2)
[2018-09-09 08:17] LABS: INR 0.97 (0.87-1.13)
[2018-09-09 08:18] LABS: Partial Thromboplastin Time 27.2 Sec. (24.2-36.6)
--- NOTE | 2018-09-09 08:40 | XRay Report ---
AP CHEST: HISTORY: Hypertension AP view of the chest demonstrates a normal mediastinal and cardiac contour with clear lungs and normal bony and soft tissue structures. IMPRESSION: Unremarkable AP chest.
--- NOTE | 2018-09-09 08:47 | Cat Scan Report ---
CT HEAD WITHOUT CONTRAST: HISTORY: Headache. TECHNIQUE: Sequential CT images without contrast. FINDINGS: Images obtained show bilateral prominence of the sulci and ventricles. There are no abnormal intra- or extra-axial blood or fluid collections. There are no focal masses or evidence of mass effect. The diop white matter differentiation appears within normal limits. Regions of periventricular decreased attenuation are consistent with microangiopathic ischemic disease. The posterior fossa structures including the fourth ventricle, cerebellum, and brainstem appear normal. IMPRESSION: Evidence of atrophy and microangiopathic ischemic disease. No acute intracranial process noted. No significant change since 07/02/18.
[2018-09-09 12:33] VITALS: BP 135/96
== END 2018-09-09 14:00 | disposition home or self-care (01) ==
LOC: ED 06:32
DX: G40.909 Epilepsy, unspecified, not intractable, without status epilepticus (principal); F10.230 Alcohol dependence with withdrawal, uncomplicated; I10 Essential (primary) hypertension
CPT/HCPCS: 36415; 70450; 71045; 80048; 80076; 82550; 82553; 83735; 83880; 84484; 85027; 85610; 85730; 93005; 93010; 96365; 96367; 96375; 99285; G0480; J1953; J2060; J3411; 80320